=== PATIENT | male | born 2005 | race African-American/Black ===

== ENCOUNTER 2025-06-26 06:13 | Outpatient (REF) | payer OTHER, SELFPAY ==
--- NOTE | ~2025-06-26 | US_ITS ---
CLINICAL HISTORY: RUQ pain, elevated Liver transaminase US abdomen limited Comparison: None provided Findings: The visualized pancreas is normal. The aorta and inferior vena cava are normal caliber. Liver length estimated at 15.8 cm. Normal echogenicity. No focal liver lesion. There is no intrahepatic bile duct dilatation. The common duct is 2 mm in diameter. There are no calcified gallstones. A tiny focus of echogenicity arising from the anterior wall of the gallbladder is felt to most likely be of no significance but very mild adenomyomatosis can not be excluded. The main portal vein is antegrade. The right kidney is 10.3 cm in length. No ascites. IMPRESSION: Unremarkable ultrasound appearance of the liver. This document has been electronically signed by: Marie Gandara MD on 06/27/2025 17:23:10
--- OUTSIDE RECORDS SUMMARY | 2025-06-26 06:16 | XMS_ITS | Clinical Summary ---
Author Organization Former[facility] Address [address] [place] [address] Care Team Providers Care Control Systems Technician Name Role Phone Kian Ruff MD Primary Care Provider [phone] Allergies Active Allergy Reactions Criticality Noted Date Comments Omnicef 05/20/2023 Penicillin 05/20/2023 Medications No known medications Active Problems Problem Noted Date Diagnosed Date Thalassemia trait, alpha 03/27/2025 Encounters Date Type Department Care Team Description 03/27/2025 3:00 PM EDT Office Visit [facility] Primary [address] [address] Kian Ruff MD Well adult exam (Primary Dx); Pseudofolliculitis barbae; Thalassemia trait, alpha 03/27/2025 Travel from Last 3 Months Immunizations Immunization Administration Dates Next Due DTaP vaccine(INFANRIX)6W-6Y 05/23/2008,0 11/17/2004,2003,10/12,2003 HPV 9-Valent 07/29/2017,06/15/2016 Hep B, Adolescent or Pediatric 03/13/2004,2002,2003 Hepatitis A pediatric/adoles cent (VAQTA PEDS) 1Y-18Y 07/29/2017,06/15/2016 Hib (PRP-OMP) 11/17/2004, 4,2003,08/08 IPV 05/23/2008,200 4,2003,08/08 MMR 05/23/2008,06/11/2004 Meningococcal 4-valent IM (MENVEO) 06/02/2023 Meningococcal MCV4P 09/02/2020,06/11/2015 Pfizer SARS-CoV-2 Bivalent 12+ yrs 12/04/2021 Pfizer SARS-CoV-2 Primary Se lucas 12+ yrs 03/01/2021,02/06/2021 Pneumococcal Conjugate 13-Valent 004,2003,2003,08/08 TDAP VACCINE (BOOSTRIX,ADACEL) 7Y+ 06/02/2023, Typhoid Inactivated 05/23/2013 Varicella SQ (VARIVAX) 1Y+ 05/23/2008 Yellow Fever 05/31/2013 Family History Medical History Relation Comments Diabetes Father Relation Status Comments Father Social History Tobacco Use Types Packs/Day Years Used Date Smoking Tobacco: Never Smokeless Tobacco: Never PHQ-2 Answer Date Recorded Patient Health Questionnaire-2 Score 0 03/27/2025 Transportation Answer Date Recorded In the past 12 months, has l ack of reliable transportation kept you from medical appointments, meetings, work or from getting things needed for daily living? No 03/27/2025 Living Situation Answer Date Recorded What is your living situation today? I have a [facility] place to live 03/27/[address] you li ve. Do you have problems with any of the following? Choose all that apply: None/None on this list 03/27/2025 Food vital sign Answer Date Recorded Within the past 12 months, y ou worried that your food would run out before you got money to buy more Never true 03/27/2025 Within the past 12 months, t he food you bought just didn't last and you didn't have money to get more. Never true 03/27/2025 Utilities Answer Date Recorded In the past 12 months has th e electric, gas, oil, or water company threatened to shut off services in your home? No 03/27/2025 Sex and Gender Information Value Date Recorded Sex Assigned at Male 12/03/2018 12:35 PM EST Legal Sex Male 2:50 PM EDT Gender Identity Not on file Sexual Orientation Not on file Last Filed Vital Signs Vital Sign Reading Time Taken Comments Blood Pressure 120/70 03/27/2025 3:06 PM EDT Pulse 70 03/27/2025 3:06 PM EDT Temperature 36.6 C (97.8 F) 05/20/2023 1:48 PM EDT Respiratory Rate - - Oxygen Saturation 99% 03/27/2025 3:06 PM EDT Inhaled Oxygen Concentration - - Weight 76.3 kg (168 lb 3.2 oz) 03/27/2025 3:06 P M EDT Height 182.9 cm (6') 03/27/2025 3:06 PM EDT Body Mass Index 22.81 03/27/2025 3:06 PM EDT Plan of Treatment Health Maintenance Due Date Last Done Comments Meningococcal B Vaccine (1 of 2 - Standard) 2019 Diabetes Screening 2021 COVID-19 Vaccine ( - season) 2024 12/04/2021, 03/01/2021, 02/06/2021 Influenza Vaccine (#1) 2025 Comprehensive Annual Visit 03/27/2026 03/27/2025, Depression Screening 03/27/2026 03/27/2025, 03/27/20 25 DTaP/Tdap/Td Vaccines (7 - Td or Tdap) 06/02/2033 06/02/2023, 05/23/2013, 05/23/2008, Additional history exists Adult RSV (60+ Years or ) (1 - 1-dose 75+ series) 2078 Hepatitis B Vaccines Completed 03/13/2004, 2003, 2003 Pneumococcal Vaccine: Pediatrics (0 to 5 years) and At-Risk Patients (6-49 Years) Completed 06/11/2004, 2003, 2003, Additional history exists HIB Vaccines Completed 11/17/2004, 04/2004, 2003, Additional history exists IPV Vaccines Completed 05/23/2008, 01/2004, 2003, Additional history exists Varicella Vaccines Completed 05/23/2008, 11/17/2004 HPV Vaccines Completed 07/29/2017, 06/15/2016 Hepatitis A Vaccines Completed 07/29/2017, 06/15/20 16 Meningococcal Conjugate (ACWY) Vaccine Completed 06/02/2023, 09/02/2020, 06/11/2015 HIV Screening Discontinued Hepatitis C Screening Discontinued Rotavirus Vaccines Aged Out No longer eligible based on patient's age to complete this topic Insurance Care Teams Control Systems Technician Relationship Specialty Start Date End Date Kian Ruff MD [address] [place] [phone] PCP - General Family Medicine 09/02/20
== END 2025-06-26 06:14 | disposition home or self-care (01) ==
LOC: HO.UMASIMG 06:13
PROVIDERS: Visit Provider Student in an Organized Health Care Education/Training Program
DX: R10.11 Right upper quadrant pain (principal); R74.01 Elevation of levels of liver transaminase levels
CPT/HCPCS: 76705

== ENCOUNTER → 2025-06-26 10:03 | Outpatient (BNV) | payer OTHER, SELFPAY | PROVIDERS: Visit Provider Radiology Diagnostic Radiology | DX: R10.11 Right upper quadrant pain (principal) | CPT/HCPCS: 76705 ==

== ENCOUNTER 2025-07-31 14:13 | Outpatient (REF) | payer OTHER, SELFPAY ==
[2025-07-31 16:55] LABS: Alanine Aminotransferase 34 U/L (0-40); Albumin Level 4.7 g/dL (3.5-5.0); Alkaline Phosphatase 60 U/L (39-117); Anion Gap 9 (12-20); Aspartate Amino Transferase 51 U/L (5-37); Blood Urea Nitrogen 19 mg/dL (9-16); Calcium 9.1 mg/dL (8.4-10.2); Carbon Dioxide 29 mmol/L (22-29); Chloride 108 mmol/L (96-108); Estimated Glomerular Filt Rate > 60; Potassium 4.1 mmol/L (3.3-5.1); Sodium 142 mmol/L (135-145); Total Protein 7.3 g/dL (6.5-8.0)
[2025-07-31 16:58] LABS: Ferritin 95 ng/mL (20-250)
--- OUTSIDE RECORDS SUMMARY | 2025-07-31 18:20 | XMS_ITS ---
Author Name [facility] Organization Unknown Encounters Encounter Type Encounter Reason Primary Diagnosis Location Date Ambulatory [facility]. ([facility] 01/03/2025
[2025-08-01 06:53] LABS: EBV-NA IgG Index 364.00 U/mL; EBV-VCA IgG Ab 231.00 U/mL; EBV-VCA IgM Ab <36.00 U/mL
[2025-08-01 09:58] LABS: Anti Nuclear Antibody Screen NEGATIVE (NEGATIVE)
[2025-08-07 01:04] LABS: FIB-ALT 21 U/L (9-46); FIB-Alpha-2-Macroglobulin 209 mg/dL (106-279); FIB-Apolipoprotein A1 128 mg/dL (94-176); FIB-GGT 14 U/L (3-70); FIB-Haptoglobin 40 mg/dL (43-212); FIB-Total Bilirubin 0.4 mg/dL (0.2-1.2); Liver Fibrosis Score 0.18; Liver Fibrosis Stage F0; Nec Inflam Act Grade A0; Nec Inflam Act Score 0.07
== END 2025-07-31 14:14 | disposition home or self-care (01) ==
LOC: HO.LAB 14:13
PROVIDERS: Visit Provider Nurse Practitioner
DX: R10.12 Left upper quadrant pain (principal); R74.01 Elevation of levels of liver transaminase levels; I51.7 Cardiomegaly; D56.3 Thalassemia minor; R10.11 Right upper quadrant pain; Z83.79 Family history of other diseases of the digestive system
CPT/HCPCS: 36415; 80053; 81596; 82105; 82728; 83013; 86015; 86038; 86381; 86664; 86665

== ENCOUNTER 2025-07-31 14:13 | Outpatient (AMB) | payer OTHER, SELFPAY ==
--- NOTE | 2025-07-31 14:18 | A.OFFVIS_ITS ---
Vital Signs 07/31/25 14:19 Height 6 ft Weight 164 lb 7.437 oz BMI 22.3 BP 114/64 Blood Pressure Location Lt brachial Position Sitting Pulse 58 Intake Visit Reasons: RUQ pain, abd bloating Intake Note: New patient in office today for RUQ abd pain and abd bloating. CC: Patient c/o RUQ abdominal pain that sometimes is dull and sharp and radiates to the upper center and left upper abd quadrant with onset about a month ago. He also reports abdominal bloating. Denies N/V, constipation, diarrhea, or GERD. Hospice Rn Required: No Allergies cefdinir (From Omnicef) Allergy (Unknown, Verified 07/31/25 14:23) Unknown Penicillins Allergy (Unknown, Verified 07/31/25 14:23) Unknown HPI HPI RUQ pain, abd bloating: Details: 20-year-old male here for initial evaluation of transaminitis. He is referred by the [facility] [address] and [place]. PMX Right upper quadrant abdominal pain IBS alpha thalessemia * SURGICAL HISTORY None * ALLERGIES pcn - hives omnicef * LABS SUPPLIED BY [facility]: 06/2025 TSH 0.5, AST 64, ALT 38, GFR NORMAL, FOR HEPATITIS NEGATIVE FOR HEPATITIS AB AND C, NEGATIVE HIV SCREENING, UNREMARKABLE CBC WITH PLATELETS LATUDA 19,000, [facility] [place] Findings: The visualized pancreas is normal. The aorta and inferior vena cava are normal caliber. Liver length estimated at 15.8 cm. Normal echogenicity. No focal liver lesion. There is no intrahepatic bile duct dilatation. The common duct is 2 mm in diameter. There are no calcified gallstones. A tiny focus of echogenicity arising from the anterior wall of the gallbladder is felt to most likely be of no significance but very mild adenomyomatosis can not be excluded. The main portal vein is antegrade. The right kidney is 10.3 cm in length. No ascites. IMPRESSION: Unremarkable ultrasound appearance of the liver. TODAY'S VISIT COUNTS INCLUDE 234 BEDS AT THE [facility] Surgical History (Updated 07/31/25 @ 14:24 by HERBERTH Waters) No pertinent past surgical history Family History (Updated 07/30/25 @ 11:43 by HERBERTH Waters) Father Diabetes Social History Alcohol intake: never Patient Tobacco Use Status: Never used Tobacco Review of Systems Const Denies fatigue, Denies fever(s), Denies night sweats, Denies poor appetite and Denies weight loss ENT Reports Normal hearing present, Denies dental pain, Denies dysphagia, Denies hearing loss, Denies mouth pain, Denies odynophagia, Denies throat swelling, Denies tongue swelling and Reports other (Dentition adequate) Card Reports no additional complaints Resp Reports no additional complaints GI Details: Reports abdominal pain, Denies melena, Reports bloating, Denies hematochezia, Denies constipation, Denies GI cramping, Denies dysphagia, Denies excessive flatus, Denies early satiety, Denies heartburn, Denies diarrhea, Denies nausea, Denies odynophagia, Denies vomiting and Denies hematemesis Skin/Breast Denies pruritus, Denies lesions, Denies rash and Denies jaundice Neuro Reports Normal hearing present and Denies Abnormal speech present Endo Denies fatigue Aller/Immun Denies throat swelling and Denies tongue swelling Physical Exam Vital Signs: BMI result Body Mass Index 22.3 Const General: cooperative, no acute distress, well developed and well groomed Nutritional Appearance: average body habitus and well nourished Orientation/consciousness: oriented to person, oriented to place and oriented to time Limitations: No language barrier HEENT Head: Yes normocephalic and Yes atraumatic Eyes General: appearance normal, both eyes and all related structures Pupils: Equal, round and reactive pupils present Neck Neck: Yes normal visual inspection and Yes no lymphadenopathy Thyroid: Thyroid normal Resp Effort & Inspection: normal respiratory effort and able to speak in complete sentences Auscultation: clear to auscultation bilaterally Cardio Rate: regular rate Rhythm: regular rhythm Heart sounds: Normal, physiologic split S2 sound present Peripheral pulses: radial pulses present and posterior tibial pulses present GI Inspection: No distended and No Abdominal panniculus present Palpation (GI): Soft to palpation, nontender, no guarding, not rigid and No hepatosplenomegaly present Percussion: Yes normal to percussion Auscultation: normal bowel sounds Rectal Exam - Male: Yes deferred Skin General skin exam: no rashes or lesions noted, turgor normal, skin not dry, no jaundice, No spider nevi and no striae Rashes: no rashes Nails: normal Neuro General: oriented to person, oriented to place and oriented to time Cranial nerves: Yes Equal, round and reactive pupils present and Yes Normal hearing present Speech: No Abnormal speech present Extrem General: Yes normal to inspection, No clubbing, No cyanosis and No edema Psych Appearance: grossly normal and well kempt Mental Status: mental status grossly normal Speech and movement: Normal speech and movement present Affect: normal affect Attitude: cooperative Thought process: Normal thought process present and not confabulating Thought content: Normal thought content present Insight: Fair insight present (Psych) Judgement: Fair judgement present (Psych) Assessment & Plan Assessment & Plan (1) LUQ abdominal pain: Code(s): R10.12 - Left upper quadrant pain Category: Medical (2) Transaminitis: Code(s): R74.01 - Elevation of levels of liver transaminase levels Category: Medical Plan - The patient is a 20-year-old male presenting with abdominal pain and elevated liver enzymes. - The abdominal pain began in June, occurring several times daily, often in the right upper quadrant but sometimes shifting leftward. It has since tapered off and is not happening as often or a severely. - The pain is sharp, likened to a post-exercise stitch, with variable durations and not food-related or bowel related. However, he does suffer lifelong bloating when he puts anything in his stomach more than water. - Symptoms occasionally arise with activity but tend to dissipate when activity intensifies. 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 - Bloating is present, intensified by non-water beverages. - Liver enzyme elevation has prompted further assessment, with family history in his mother of elevated liver functions during . There is also a strong family history of peptic ulcer disease noted in his father, mother and uncles. - Previous cardiac assessments showed borderline left ventricular hypertrophy and mild hypokinesis. - Alpha thalassemia trait is also identified. - No alcohol consumption is reported. - Takes supplements, including Ashwagandha and Shilajit, currently discontinued as advised. I think that his abdominal pain since that is happening in the area of the hepatic and splenic flexures is either gas trapping or irritable bowel related. I will give him a trial of dicyclomine to see if this dissipates the pain and if it does we will know that this is the underlying etiology. Ultrasound was negative for gallstones, and the labs are reassuring that a gallbladder etiology is likely not part of the presentation. Because of the strong family history of ulcer disease I will get an H pylori breath test, although he does not seem to have upper abdominal pain that would indicate that he has any ulcer concerns. I want to repeat his liver functions to see if they have improved off of his supplements and I will also add a workup to rule out autoimmune liver disease hemochromatosis etc. the patient denies any symptoms like fever or sore throat that would lead me to believe that mono or Marichuy bar is a part of the differential diagnosis but I will test for it anyway. Return office visit in 4 weeks Orders: Orders Comprehensive Met. Panel Today R10.12 - Left upper quadrant pain, R74.01 - Elevation of levels of liver transaminase levels Mitochondrial Antibody Today R10.12 - Left upper quadrant pain, R74.01 - Elevation of levels of liver transaminase levels Liver Fibrosis Pnl Today R10.12 - Left upper quadrant pain, R74.01 - Elevation of levels of liver transaminase levels Alpha Fetoprotein Today R10.12 - Left upper quadrant pain, R74.01 - Elevation of levels of liver transaminase levels Pancreatic Elastase-1 Today R10.12 - Left upper quadrant pain, R74.01 - Elevation of levels of liver transaminase levels BEN Reflex Titer and Pattern Today R10.12 - Left upper quadrant pain, R74.01 - Elevation of levels of liver transaminase levels Ferritin Today R10.12 - Left upper quadrant pain, R74.01 - Elevation of levels of liver transaminase levels H Pylori Breath Test Today R10.12 - Left upper quadrant pain, R74.01 - E levation of levels of liver transaminase levels Smooth Muscle Antibody Today R10.12 - Left upper quadrant pain, R74.01 - Elevation of levels of liver transaminase levels Marichuy-Day Virus Profile Today R10.12 - Left upper quadrant pain, R74.01 - Elevation of levels of liver transaminase levels Medications: New dicyclomine 20 mg PO QID 120 tabs 6RF 30 days D56.3 - Thalassemia minor, I51.7 - Cardiomegaly, R10.12 - Left upper quadrant pain, R74.01 - Elevation of levels of liver transaminase levels Coding Level of Care Code New Pt Level 3 (08751) Diagnoses LUQ abdominal pain R10.12 Transaminitis R74.01
[2025-07-31 14:19] VITALS: BP 114/64; PULSE 58; BMI 22.3
--- OUTSIDE RECORDS SUMMARY | 2025-07-31 17:29 | XMS_ITS | Clinical Summary ---
Author Organization [facility] Address [address] [place] [address] Care Team Providers Care Bonded Structures Repairer Name Role Phone Kian Ruff MD Primary Care Provider [phone] Allergies Active Allergy Reactions Criticality Noted Date Comments Omnicef 05/20/2023 Penicillin 05/20/2023 Medications No known medications Active Problems Problem Noted Date Diagnosed Date Thalassemia trait, alpha 03/27/2025 Immunizations Immunization Administration Dates Next Due DTaP vaccine(INFANRIX)6W-6Y 05/23/2008,0 11/17/2004,2003,10/12,2003 HPV 9-Valent 07/29/2017,06/15/2016 Hep B, Adolescent or Pediatric 03/13/2004,2002,2003 Hepatitis A pediatric/adoles cent (VAQTA PEDS) 1Y-18Y 07/29/2017,06/15/2016 Hib (PRP-OMP) 11/17/2004,200 4,2003,08/08 IPV 05/23/2008,200 4,2003,08/08 MMR 05/23/2008,06/11/2004 Meningococcal [...] your living situation today? [facility] 03/27/2025 Think about [...] 2 - Standard) 2019 Diabetes Screening 2021 Influenza Vaccine (#1) 2025 COVID-19 Vaccine ( season) 2025 12/04/2021, 03/01/2021, 02/06/2021 Comprehensive Annual Visit 03/27/2026 03/27/2025, Depression Screening [...] to complete this topic Insurance Care Teams Bonded Structures Repairer Relationship Specialty Start Date End Date Kian Ruff MD [address] [place] [phone] PCP - General Family Medicine 09/02/20
--- OUTSIDE RECORDS SUMMARY | 2025-07-31 17:30 | XMS_ITS | Referral Summary ---
Author Organization [facility] Address [address] [place] [id number] Care Team Providers Care Boatwright Name Role Phone Kian Ruff MD Primary Care Provider [phone] Allergies Active Allergy Reactions Criticality Noted Date [...] SQ (VARIVAX) 1Y+ 05/23/2008 Yellow Fever 05/31/2013 Social History Tobacco Use Types Packs/Day Years [...] your living situation today? I have a [facility] place to live 03/27/2025 Think about [...] 03/27/2025 3:06 PM EDT Plan of Treatment Not on file Insurance Care Teams Boatwright Relationship Specialty Start Date End Date Kian Ruff MD [address] [place] [phone] PCP - General Family Medicine 09/02/20
--- OUTSIDE RECORDS SUMMARY | 2025-07-31 17:30 | XMS_ITS | Encounter Summary ---
Author Organization [facility] Address [address] [place] [address] Care Team Providers Care Commercial Loan Collection Officer Name Role Phone Kian Ruff MD Primary Care Provider [phone] Encounter Details Date Type Department Care Team (Late st Contact Info) Description 04/28/2020 Conversion Encounter [facility] HISTORICAL DATA CONVERSIONS [address] [place] [address] Social History Tobacco Use Types Packs/Day Years Used Date Smoking Tobacco: Never Assessed Sex and Gender Information Value Date Recorded Sex Assigned at Male 12/03/2018 12:35 PM EST Legal Sex Male 2:50 PM EDT Gender Identity Not on file Sexual Orientation Not on file documented as of this encounter Miscellaneous Notes * [employer] - HISTORICAL PROVIDER, CONVERSION - 04/28/2020 11:14 AM EDT From: SALEEM ANDINO To: COVID-19 , LAB FOLLOW UP; Sent: 04/28/2020 11:14:17 EDT ! Subject: Requesting Test Results Caller Name/ Relationship to Patient Phillip- Best Contact Number: [phone] or [phone] Okay to Leave Voice Mail? yes New patient to [employer]? Y/N Provider & Practice Name (if established patient): Is the patient 65 years of age or older?: COVID- 19 Symptoms / Medical Concerns Call: 1- Have you travelled to [place], [place], [place], [place], [facility], [place] in the last 21 days or been in contact with anyone diagnosed with coronavirus in the last 14 days? 2 ??? Ask: Do you have a Fever? Y/N If you have taken your temperature, what is it? 3 ??? Ask: Do you have a cough? Y/N 4.- Ask: Do you have shortness of breath? Y/N 4- Ask: Do you have any other symptoms? Patient was tested on 04/24/20 and has not gotten his results back. Please advise. in progress Live Answer: When patient returns call, please communicate the following information: Time Message was left: 8:32 Number where Message left: [phone] Reason for Call: Covid Results Live Answer can communicate the following information: Covid Test was negative Patient already notified documented in this encounter Plan of Treatment Not on file documented as of this encounter Visit Diagnoses Not on filedocumented in this encounter Care Teams Commercial Loan Collection Officer Relationship Specialty Start Date End Date Kian Ruff MD [address] [place] [phone] PCP - General Family Medicine 09/02/20 documented as of this encounter
== END 2025-07-31 15:58 | disposition home or self-care (01) ==
LOC: HO.HGI 14:13
PROVIDERS: PCP Student in an Organized Health Care Education/Training Program; Visit Provider Nurse Practitioner
DX: R10.12 Left upper quadrant pain (principal); R74.01 Elevation of levels of liver transaminase levels
CPT/HCPCS: 99203

== ENCOUNTER 2025-09-07 12:10 | Outpatient (AMB) | payer OTHER, SELFPAY ==
[2025-09-07 12:16] VITALS: BP 130/67; PULSE 62; BMI 21.5
--- NOTE | 2025-09-07 12:16 | A.OFFVIS_ITS ---
Vital Signs 09/07/25 12:16 Height 6 ft Weight 158 lb 11.725 oz BMI 21.5 BP 130/67 Blood Pressure Location Lt brachial Position Sitting Pulse 62 Intake Visit Reasons: 4 week FUV. Review HP Testing + Labs Intake Note: Celio de la torre presents in the office as a follow up for his labs. CC: no concerns at this time. Was given Meloxicam that he stoopped 4 days ago. Nitroglycerin patches were given as well. Allergies cefdinir (From Omnicef) Allergy (Unknown, Verified 09/07/25 12:19) Unknown Penicillins Allergy (Unknown, Verified 09/07/25 12:19) Unknown HPI HPI 4 week FUV. Review HP Testing + Labs: Details: Assessment & Plan (1) LUQ abdominal pain: Code(s): R10.12 - Left upper quadrant pain Category: Medical (2) Transaminitis: Code(s): R74.01 - Elevation of levels of liver transaminase levels Category: Medical Plan - The patient is a 20-year-old male presenting with abdominal pain and elevated liver enzymes. - The abdominal pain began in June, occurring several times daily, often in the right upper quadrant but sometimes shifting leftward. It has since tapered off and is not happening as often or a severely. - The pain is sharp, likened to a post-exercise stitch, with variable durations and not food-related or bowel related. However, he does suffer lifelong bloating when he puts anything in his stomach more than water. - Symptoms occasionally arise with activity but tend to dissipate when activity intensifies. 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 - Bloating is present, intensified by non-water beverages. - Liver enzyme elevation has prompted further assessment, with family history in his mother of elevated liver functions during . There is also a strong family history of peptic ulcer disease noted in his father, mother and uncles. - Previous cardiac assessments showed borderline left ventricular hypertrophy and mild hypokinesis. - Alpha thalassemia trait is also identified. - No alcohol consumption is reported. - Takes supplements, including Ashwagandha and Shilajit, currently discontinued as advised. I think that his abdominal pain since that is happening in the area of the hepatic and splenic flexures is either gas trapping or irritable bowel related. I will give him a trial of dicyclomine to see if this dissipates the pain and if it does we will know that this is the underlying etiology. Ultrasound was negative for gallstones, and the labs are reassuring that a gallbladder etiology is likely not part of the presentation. Because of the strong family history of ulcer disease I will get an H pylori breath test, although he does not seem to have upper abdominal pain that would indicate that he has any ulcer concerns. I want to repeat his liver functions to see if they have improved off of his supplements and I will also add a workup to rule out autoimmune liver disease hemochromatosis etc. the patient denies any symptoms like fever or sore throat that would lead me to believe that mono or Marichuy bar is a part of the differential diagnosis but I will test for it anyway. Return office visit in 4 weeks Orders: Orders Comprehensive Met. Panel Today R10.12 - Left upper quadrant pain, R74.01 - Elevation of levels of liver transaminase levels Mitochondrial Antibody Today R10.12 - Left upper quadrant pain, R74.01 - Elevation of levels of liver transaminase levels Liver Fibrosis Pnl Today R10.12 - Left upper quadrant pain, R74.01 - Elevation of levels of liver transaminase levels Alpha Fetoprotein Today R10.12 - Left upper quadrant pain, R74.01 - Elevation of levels of liver transaminase levels Pancreatic Elastase-1 Today R10.12 - Left upper quadrant pain, R74.01 - Elevat ion of levels of liver transaminase levels BEN Reflex Titer and Pattern Today R10.12 - Left upper quadrant pain, R74.01 - Elevation of levels of liver transaminase levels Ferritin Today R10.12 - Left upper quadrant pain, R74.01 - Elevation of levels of liver transaminase levels H Pylori Breath Test Today R10.12 - Left upper quadrant pain, R74.01 - Elevation of levels of liver transaminase levels Smooth Muscle Antibody Today R10.12 - Left upper quadrant pain, R74.01 - Elevation of levels of liver transaminase levels Marichuy-Day Virus Profile Today R10.12 - Left upper quadrant pain, R74.01 - Elevation of levels of liver transaminase levels Medications: New dicyclomine 20 mg PO QID 120 tabs 6RF 30 days D56.3 - Thalassemia minor, I51.7 - Cardiomegaly, R10.12 - Left upper quadrant pain, R74.01 - Elevation of levels of liver transaminase levels t LABS: Laboratory Tests 07/31/25 07/31/25 07/31/25 15:20 15:50 Unknown Ferritin 95 Total Bilirubin 0.4 AST 51 H ALT 34 Alkaline Phosphatase 60 Liver Fibrosis Stage F0 Alpha Fetoprotein 1.5 BEN Screen NEGATIVE Anti-Mitochondrial Ab NEGATIVE Anti-Smooth Muscle Ab <20 EBV Capsid Ag IgG Ab 231.00 H EBV Capsid Ag IgM Index <36.00 EBV Nuclear Ag IgG Indx 364.00 H H. pylori Breath Test Negative PANCREATIC A LAST TASTE WAS NOT OBTAINED TODAY[facility] Surgical History No pertinent past surgical history Family History Father Diabetes Social History Alcohol intake: never Patient Tobacco Use Status: Never used Tobacco Review of Systems Const Denies fatigue, Denies fever(s), Denies night sweats, Denies poor appetite and Denies weight loss ENT Reports Normal hearing present, Denies dental pain, Denies dysphagia, Denies hearing loss, Denies mouth pain, Denies odynophagia, Denies throat swelling, Denies tongue swelling and Reports other (Dentition adequate) Card Reports no additional complaints Resp Reports no additional complaints GI Details: Denies abdominal pain, Denies melena, Denies bloating, Denies hematochezia, Denies constipation, Denies GI cramping, Denies dysphagia, Denies excessive flatus, Denies early satiety, Denies heartburn, Denies diarrhea, Denies nausea, Denies odynophagia, Denies vomiting and Denies hematemesis Skin/Breast Denies pruritus, Denies lesions, Denies rash and Denies jaundice Neuro Reports Normal hearing present and Denies Abnormal speech present Endo Denies fatigue Aller/Immun Denies throat swelling and Denies tongue swelling Physical Exam Vital Signs: Last Vital Signs Pulse 62 09/07/25 12:16 BP 130/67 09/07/25 12:16 BMI result Body Mass Index 21.5 Const General: cooperative, no acute distress, well developed and well groomed Nutritional Appearance: average body habitus and well nourished Orientation/consciousness: oriented to person, oriented to place and oriented to time Limitations: No language barrier HEENT Head: Yes normocephalic and Yes atraumatic Eyes General: appearance normal, both eyes and all related structures Pupils: Equal, round and reactive pupils present Neck Neck: Yes normal visual inspection and Yes no lymphadenopathy Thyroid: Thyroid normal Resp Effort & Inspection: normal respiratory effort and able to speak in complete sentences Auscultation: clear to auscultation bilaterally Cardio Rate: regular rate Rhythm: regular rhythm Heart sounds: Normal, physiologic split S2 sound present Peripheral pulses: radial pulses present and posterior tibial pulses present GI Inspection: No distended and No Abdominal panniculus present Palpation (GI): Soft to palpation, nontender, no guarding, not rigid and No hepatosplenomegaly present Percussion: Yes normal to percussion Auscultation: normal bowel sounds Rectal Exam - Male: Yes deferred Skin General skin exam: no rashes or lesions noted, turgor normal, skin not dry, no jaundice, No spider nevi and no striae Rashes: no rashes Nails: normal Neuro General: oriented to person, oriented to place and oriented to time Cranial nerves: Yes Equal, round and reactive pupils present and Yes Normal hearing present Speech: No Abnormal speech present Extrem General: Yes normal to inspection, No clubbing, No cyanosis and No edema Psych Appearance: grossly normal and well kempt Mental Status: mental status grossly normal Speech and movement: Normal speech and movement present Affect: normal affect Attitude: cooperative Thought process: Normal thought process present and not confabulating Thought content: Normal thought content present Insight: Good insight present (Psych) Judgement: Good judgement present (Psych) Results Reviewed Results Reviewed: Laboratory Tests 07/31/25 07/31/25 07/31/25 15:20 15:50 Unknown Ferritin 95 Total Bilirubin 0.4 AST 51 H ALT 34 Alkaline Phosphatase 60 Liver Fibrosis Stage F0 Alpha Fetoprotein 1.5 BEN Screen NEGATIVE Anti-Mitochondrial Ab NEGATIVE Anti-Smooth Muscle Ab <20 EBV Capsid Ag IgG Ab 231.00 H EBV Capsid Ag IgM Index <36.00 EBV Nuclear Ag IgG Indx 364.00 H H. pylori Breath Test Negative PANCREATIC A LAST TASTE WAS NOT OBTAINED Assessment & Plan Assessment & Plan (1) Transaminitis: Comment: Laboratory Tests 07/31/2509 15:2015:50Unknown Ferritin 95 Total Bilirubin 0.4 AST 51 H ALT 34 Alkaline Phosphatase 60 Liver Fibrosis Stage F0 Alpha Fetoprotein 1.5 BEN Screen NEGATIVE Anti-Mitochondrial Ab NEGATIVE Anti-Smooth Muscle Ab <20 EBV Capsid Ag IgG Ab 231.00 H EBV Capsid Ag IgM Index <36.00 EBV Nuclear Ag IgG Indx 364.00 H H. pylori Breath Test Negative PANCREATIC A LAST TASTE WAS NOT OBTAINED Code(s): R74.01 - Elevation of levels of liver transaminase levels Category: Medical (2) LUQ abdominal pain: Code(s): R10.12 - Left upper quadrant pain Category: Medical Plan - The patient is a 20-year-old male presenting with elevated liver enzymes. - Noted trend of elevated liver enzymes reducing over time. - Possible correlation with Shilajit usage; contamination concerns raised. - Noted trend of elevated liver enzymes reducing over time. - Possible correlation with herbal supplement usage; contamination concerns raised. - Assessment ruled out other severe conditions such as autoimmune diseases. - A focused inquiry into herbal supplement safety, especially contamination from specific regions. ent usage; contamination concerns raised. - Assessment ruled out other severe conditions such as autoimmune diseases. - A focused inquiry into herbal supplement safety, especially contamination from specific regions. - Stop using the Shilajit, . - Monitor liver enzyme levels through regular follow-up. - Avoid Shilajit, from regions known for contamination risks. - Sign up for the patient portal to access medical records easily. - Follow up in six months or earlier if problems persist or worsen. - Discuss your current test results with new healthcare providers. - Call us if you need any assistance or if there are changes in your health. Coding Level of Care Code Est Pt Level 3 (98538) Diagnoses Transaminitis R74.01 LUQ abdominal pain R10.12
--- OUTSIDE RECORDS SUMMARY | 2025-09-07 13:42 | XMS_ITS | Clinical Summary ---
Author Organization [facility] Address [address] [place] [address] Care Team Providers Care Service Tester Name Role Phone Kian Ruff MD Primary Care Provider [phone] Allergies Active Allergy Reactions Criticality Noted Date [...] your living situation today? I have a [facility] place to live 03/27/2025 Think about [...] 05/23/2013, 05/23/2008, Additional history exists Adult RSV (50+ Years or ) (1 - 1-dose 75+ [...] to complete this topic Insurance Care Teams Service Tester Relationship Specialty Start Date End Date Kian Ruff MD [address] [place] [address] PCP - General Family Medicine 09/02/20
--- OUTSIDE RECORDS SUMMARY | 2025-09-07 13:43 | XMS_ITS | Referral Summary ---
Author Organization [facility] Address [address] [place] [address] Care Team Providers Care Citrus Fruit Packer Name Role Phone Kian Ruff MD Primary Care Provider [phone] Allergies Active Allergy Reactions Criticality Noted Date [...] your living situation today? I have a [facility] place to live 03/27/2025 Think about [...] Treatment Not on file Insurance Care Teams Citrus Fruit Packer Relationship Specialty Start Date End Date Kian Ruff MD [address] [place] [id number] PCP - General Family Medicine 09/02/20
--- OUTSIDE RECORDS SUMMARY | 2025-09-07 13:43 | XMS_ITS | Encounter Summary ---
Author Organization [facility] Address [address] [place] [address] Care Team Providers Care Custodial Laborer Name Role Phone Kian Ruff MD Primary Care Provider [phone] Encounter Details Date Type Department Care Team (Late st Contact Info) Description 04/28/2020 Conversion Encounter [facility] HISTORICAL DATA CONVERSIONS [address] [place] [address] Social History Tobacco Use Types Packs/Day Years [...] Relationship to Patient Phillip- Best Contact Number: [phone] or [phone] Okay to Leave Voice Mail? yes New patient to [facility]? Y/N Provider & Practice Name (if established patient): Is the patient 65 years of age or older?: COVID- 19 Symptoms / Medical Concerns Call: 1- Have you travelled to [place], [place], [place], [place], [facility], [place] in the last 21 days or [...] was left: 8:32 Number where Message left: [phone] Reason for Call: Covid Results Live Answer can communicate the following information: Covid Test was negative Patient already notified documented in this encounter Plan of Treatment Not on file documented as of this encounter Visit Diagnoses Not on filedocumented in this encounter Care Teams Custodial Laborer Relationship Specialty Start Date End Date Kian Ruff MD [address] [place] [address] PCP - General Family Medicine 09/02/20 documented as of this encounter
== END 2025-09-07 12:52 | disposition home or self-care (01) ==
LOC: HO.HGI 12:11
PROVIDERS: Visit Provider Nurse Practitioner
DX: R74.01 Elevation of levels of liver transaminase levels (principal); R10.12 Left upper quadrant pain
CPT/HCPCS: 99213

== ENCOUNTER 2025-09-21 19:24 | Outpatient (REF) | payer OTHER, SELFPAY ==
--- NOTE | ~2025-09-21 | MR_ITS ---
EXAMINATION: MR KNEE WITHOUT CONTRAST, RIGHT CLINICAL INFORMATION: Knee pain, fibular head pain COMPARISON: None available. TECHNIQUE: MRI of the knee without contrast was performed using routine sequences on a high-field scanner. FINDINGS: MENISCI: Medial Meniscus: Intact Lateral Meniscus: Intact LIGAMENTS: Cruciate: Intact Collateral: Intact EXTENSOR MECHANISM: Intact . Mild edema in the superolateral Hoffa's fat pad can be seen with patellar tendon-lateral femoral condyle friction/impingement. ARTICULAR CARTILAGE/BONE: Patellofemoral Compartment: Patellar retinaculum are intact. No significant chondral loss. Medial Compartment: No significant chondral loss. Lateral Compartment: No significant chondral loss. Patchy areas of mild T2 signal in the distal femur, could be related to red marrow, versus mild nonspecific edema from etiology such as osseous contusion/stress reaction. The proximal tibia-fibula articulation is maintained. No significant proximal tibiofibular osteoarthritis. No significant edema or aggressive marrow signal findings in the fibular head. JOINT FLUID AND BURSAE: No significant knee joint effusion. No significant Beltran's cyst. The visualized nerve demonstrates signal within normal limits. MR/MR knee RT wo con IMPRESSION: * Menisci appear intact without discrete tear. * Patchy signal changes in the distal femur could reflect red marrow versus mild nonspecific edema from etiology such as osseous contusion, stress reaction. Clinically correlate. * No evidence of significant proximal tibiofibular arthritis.. *Mild edema in the superolateral Hoffa's fat pad can be seen with patellar tendon-lateral femoral condyle friction/impingement. * Additional notes as above. Electronically signed by: Chandler Juarez MD 09/24/2025 07:46 AM [facility]
--- OUTSIDE RECORDS SUMMARY | 2025-09-22 01:07 | XMS_ITS | Data Portability ---
Author Organization [facility] [employer], [facility] Address [address] [place] [address] Assessment No assessment recorded. Plan of Treatment Reminders Order Date Submit Date Provider Last Modified By Organization Details Last Modified Time Details Appointments None recorded. Lab None recorded. Referral None recorded. Procedures None recorded. Surgeries None recorded. Imaging XR, chest, 2 view 2024 025 [facility], [address] [place] [address], [address], 5 11:25:11 electrocard iogram 2022 023 [email or web address] 8 [address], [address] [facility], [place], [address], 3 19:23:09 Medication Orders Anusol-HC 2.5 % topical cream with perineal applicator 2024 025 KARLA Cruz #0068, [address] [facility], [place], [address], 5 11:10:33 benzonatate 100 mg capsule 2024 025 KARLA Cruz #0068, [address] [facility], [place], [address], 5 11:10:33 azithromyci n 250 mg tablet 2024 025 KARLA Cruz #0068, [address] [facility], [place], [address], 11:10:34 naproxen 500 mg tablet 2022 023 [email or web address] Beverly Cruz #0068, [address] [facility], [facility] [place], [address], 10:47:00 Patient TargetsNo targets recorded. 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 To the ER if worsens or you develop any additional symptoms. Apply a warm compress to the affected area for 15-20 minutes at a time up to 4 times a day. Thank you for allowing us to participate in your care. Please contact us if we can do anything further to assist you. [email or web address] Not available 10/20/2023 19:21:14 01/03/2025 [id number] hemorrhoids: car e instructions [email or web address] Not available 01/03/2025 11:10:31 cough: care instructions [email or web address] Not available 01/03/2025 11:10:30 Fill a tub up with a few inches of warm water and put some epsom salts in it (about 1/2 cup). Soak in the tub for 10-15 minutes. Try to do this 2-3 times a day if possible. Rest and hydration are essential to your recovery. If you are not feeling better within 5 days, please return here or see your PCP. If your symptoms worsen, please go to the ER. Your Chest X-ray appears normal. It will be sent to a radiologist to read it also. If they feel there is anything that needs follow up, I will call you. Take over the counter cold remedies as needed. If you have high blood pressure, diabetes, or thyroid disease, avoid cold medicine with decongestants. Thank you for allowing us to participate in your care. Please contact us if we can do anything further to assist you. [email or web address] Not available 01/03/2025 11:10:28 Reason for Referral None Reported. Results Created Date Observation Date Name Description Value Unit Range Abnormal Flag Note LastModifiedBy Organization Detail LastModifiedTime 10/20/2010/20/2023 ircki wheeler am No observ ation record ed. KARLA [id number] [address] [facility], [place], [address], 10/20/2023 19:18:56 01/03/20 25 01/03/2025 XR, chest , 2 view No observ ation record ed. [email or web address] [facility] [address] [facility] [place], [address], 01/03/2025 11:52:14 Result Notes None recorded. Problems No Known Problems Medical Equipment None Reported. Allergies Allergen ID Allergen Name Allergen Category Reaction Reaction Severity Criticality Documentation Date Start Date Code Code System Note Provider Name and Address Organization Details Recorded Time 269044 Omnicef medicatio n Not available Not available Not available 10/20/2023 64585 RxNorm [facility] 18:41:07 793937 Product containin g penicilli n (product) medicatio n Not available Not available Not available 10/20/2023 93937 8001 SNOMED [place] [facility] 18:41:13 Medications Name Sig Start Date Stop Date Status Note LastModified by Organization Details LastModified Time azithromyci n 250 mg tablet TAKE 2 TABLETS (500 MG) BY ORAL ROUTE ONCE DAILY FOR 1 DAY THEN 1 TABLET (250 MG) BY ORAL ROUTE ONCE DAILY FOR 4 DAYS 2024 active Not Available Not Available Not Avai lable benzonatate 100 mg capsule Take 1 capsule 3 times a day by oral route as needed, for cough. 2024 active Not Available Not Available Not Avai lable oseltamivir 75 mg capsule TAKE ONE CAPSULE BY MOUTH TWICE A DAY FOR 5 DAYS 01/03 completed Not Available Not Available Not Available albuterol sulfate HFA 90 mcg/actuati on aerosol inhaler INHALE TWO PUFFS BY MOUTH EVERY 4 HOURS NEEDED for shortness of breath and chest tightness 01/03 completed Not Available Not Available Not Available fluticasone propionate 50 mcg/actuati on nasal spray,suspe nsion 10/20 completed Not Available Not Available Not Available naproxen 500 mg tablet Take 1 tablet twice a day by oral route as needed. 01/03 completed Not Available Not Available Not Available Anusol-HC 2.5 % topical cream with perineal applicator APPLY A THIN LAYER TO THE AFFECTED AREA(S) BY TOPICAL ROUTE 2-4 TIMES DAILY 2024 active Not Available Not Available Not Avai lable Vitals Date Recorded Pain severity - 0-10 verbal numeric rating [Score] - Reported Body height Body mass index (BMI) Body weight Oxygen saturation Oxygen saturation in Arterial blood by Pulse oximetry Heart rate Respiratory rate Body temperature Systolic And Diastolic Provider Name and Address Organization Details Last Updated DateTime 5 3 182.88 cm 22.4 kg/m2 33486.7 4 g 97 % 97 % 82 /min 18 /min 97.8 [degF] 115/72 mm[Hg] PAULA SANDOVAL [facility] 5 10:47:35 Date Recorded Body height Body mass index (BMI) Body mass index (BMI) [Percentile] Per age and sex Body weight Oxygen saturation Oxygen saturation in Arterial blood by Pulse oximetry Heart rate Respiratory rate Body temperature Systolic And Diastolic Provider Name and Address Organization Details Last Updated DateTime 3 182.88 cm 23.1 kg/m2 49 % 16943.7 g 98 % 98 % 79 /min 18 /min 98.1 [degF] 116/80 mm[Hg] PAULA ROBERTO [facility] 3 18:40:51 Social History Question Answer Notes LastModified by Organizat ion Details LastModified Time Tobacco Smoking Status Never Smoker PAULA chery [place] [facility] 10/20/2023 18:41:42 Have You Had A Flu Shot This Season? No [place] [address] Information not available 10/20/2023 If No, Would You Like A Flu Shot Today? No [place] [address] Information not available 10/20/2023 Have You Recently Traveled Abroad? No [place] [address] Information not available 10/20/2023 Sex: Unknown Functional Status Question Answer Note LastModified by Organizat ion Details LastModified Time Do you use any illicit or recreational drugs? No [place] [address] Information not available 10/20/2023 Do you or have you ever used any other forms of tobacco or nicotine? No [place] [address] Information not available 10/20/2023 What is your level of alcohol consumption? None [place] [address] Information not available 10/20/2023 Mental Status None recorded. Family History Relationship Description Onset Age of this Age Resolved Age Notes LastModified by Organization Details LastModified Time Father No current problems or disability [place] [address] Not available 10/20 18:41:29 Mother No current problems or disability [place] [address] Not available 10/20 18:41:29 Medical History No medical history recorded. Past Encounters Encounter ID Performer Location Encounter Start Date Encounter Closed Date Diagnosis/Indication Diagnosis SNOMED-CT Code Diagnosis ICD10 Code Diagnosis IMO Codes Diagnosis [place] [id number] [place] [address] [address] [place] [address] 10/20/2023 18:28:25 10/20/2023 19:23:09 Chest wall pain 635664208 R07.89 Costal chondritis 652826 04 M94.0 [id number] [place] [address] [address] [place] [address] 01/03/2025 10:30:37 01/03/2025 11:14:11 Infectious disorder of bronchus 502032600 J40 External hemorrhoids 239 02142 K64.4 Health Concerns Section Related Observation LastModified by Organization Detai ls LastModified Time None Recorded Concern Status LastModified by Organization Details LastModified Time None Recorded Advance Directives Directive None Recorded Payers Insurance Date Sequence Insurance Name Policy Number Policy Robertson Covered Member ID Robertson Member ID Guarantor Name 01/03/2025 1 [id number] Phillip Raya [id number] Celio Raya Notes Date Note Type Note Provider Name and Address Organization Details Recorded Time 10/20/20 23 text/htm l Chest PainReported by PatientHPIFor quality, patient reportssharp. For context, patient reportsexertionalandtender to touch. For source of patient information, patient reportsinformation obtained from patientandpatient arrived at urgent care ambulatory. For location, patient reportschest,left substernal, anddoes not radiate. For severity, patient reportsmild. For associated symptoms, patient reportsno dyspnea(felt slightly light headed earlier today but not now). For duration, (see above. this episode started today and aed trainer was concerned enough she wanted him to get checked out. still having mild soreness.). Today had L sided anterior chest wall pain while working out. Had similar issues at beginning of and had full work up without reaching a definitive diagnosis. W/u included labs, echo, MRI and he states they ruled out thalassemia, anemia and hypertrophic cardiomyopathy. Has a f/u in Dec. Chandni James MD [address] [place], [address], [place] [facility] 10/20/2023 19:46:01 01/03/20 25 text/htm l Pt is here for 2 separate issues: 1) He had the flu last week, --feeling better but still has a non-productive cough. 2) Also having pain in his butt and felt bulge in area x 2 days Chandni James MD [address] [place], [address], [place] - [facility] 01/03/2025 11:12:13
== END 2025-09-21 19:25 | disposition home or self-care (01) ==
LOC: HO.MRI 19:24
PROVIDERS: Visit Provider Student in an Organized Health Care Education/Training Program
DX: M25.561 Pain in right knee (principal)
CPT/HCPCS: 73721

== ENCOUNTER → 2025-09-21 19:24 | Outpatient (BNV) | payer OTHER, SELFPAY | PROVIDERS: Visit Provider Radiology Diagnostic Ultrasound | DX: M25.561 Pain in right knee (principal); R60.0 Localized edema | CPT/HCPCS: 73721 ==